=== PATIENT | female | born 1990 | race Hispanic/Latino ===

== ENCOUNTER 2017-11-10 11:25 | Emergency (ER) | payer OTHER ==
[2017-11-10 12:05] LABS: BASOPHILS % (AUTO) 0.2 % (0.0-5.0); EOSINOPHILS % (AUTO) 0.1 % (0.0-8.0); HEMATOCRIT 40.3 % (36-48); LYMPHOCYTES % (AUTO) 5.2 % (21.0-51.0); MEAN CORPUSCULAR HEMOGLOBIN 27.8 pg (27.0-33.0); MEAN CORPUSCULAR HGB CONC 34.3 g/dL (32.0-36.0); MEAN CORPUSCULAR VOLUME 80.9 fL (79-99); MONOCYTES % (AUTO) 3.3 % (3.0-13.0); NEUTROPHILS % (AUTO) 91.2 % (40.0-77.0); PLATELET COUNT (AUTO) 415 K/uL (130-400); RED BLOOD CELL COUNT(AUTO) 4.98 MIL/uL (4.00-5.50); RED CELL DISTRIBUTION WIDTH 14.1 % (11.0-15.5); WHITE BLOOD COUNT (AUTO) 18.1 K/uL (4.8-10.8)
[2017-11-10 12:11] LABS: CREATININE 0.7 mg/dL (0.5-1.5); POTASSIUM 3.6 mmol/L (3.5-5.1)
[2017-11-10 12:15] LABS: ALBUMIN 3.9 g/dL (3.5-5.0); BILIRUBIN,TOTAL 0.5 mg/dL (0.2-1.0); TOTAL PROTEIN, SERUM 8.8 g/dL (6.0-8.3)
[2017-11-10] MEDS ORDERED: SODIUM CHLORIDE 0.9% 1000ML 1,000 ML IV ONE (12:58)
[2017-11-10] MEDS ORDERED: ONDANSETRON HCL MDV 20ML 2 MG/ML VIAL ONE (12:58)
[2017-11-10 13:21] LABS: APPEARANCE,URINE TURBID (CLEAR); BILIRUBIN,URINE SMALL (NEGATIVE); COLOR,URINE YELLOW (YELLOW); GLUCOSE, URINE (UA) NEGATIVE (NEGATIVE); HCG,QUAL RESULT POSITIVE (NEGATIVE); KETONES,URINE >=80 mg/dL (NEGATIVE); LEUKOCYTE ESTERASE ,URINE NEGATIVE (NEGATIVE); NITRATE,URINE NEGATIVE (NEGATIVE); OCCULT BLOOD,URINE MODERATE (NEGATIVE); PH,URINE 5.5 (5.0-8.0); PROTEIN,URINE TRACE (NEGATIVE); UROBILINOGEN,URINE 0.2 mg/dL (0.2-1.0)
[2017-11-10 13:48] LABS: AMORPHOUS SEDIMENT,UR Many /LPF (None Seen); BACTERIA,URINE Few /HPF (None Seen); WBC,URINE None Seen /HPF (0-1)
== END 2017-11-10 14:28 | disposition home or self-care (01) ==
LOC: EDH 11:25
DX: O20.9 Hemorrhage in early pregnancy, unspecified (principal); O26.891 Other specified pregnancy related conditions, first trimester; K52.9 Noninfective gastroenteritis and colitis, unspecified; Z90.49 Acquired absence of other specified parts of digestive tract; Z79.899 Other long term (current) drug therapy; Z3A.09 9 weeks gestation of pregnancy
CPT/HCPCS: 36415; 80053; 81001; 81025; 82150; 83690; 85025; 86677; 96361; 96374; 99284; J7030

== ENCOUNTER 2017-12-11 05:59 | Day surgery (SDC) | payer OTHER ==
[2017-12-10 16:35] VITALS: BP 140/82
[2017-12-10 16:39] LABS: BASOPHILS % (AUTO) 2.7 % (0.0-5.0); EOSINOPHILS % (AUTO) 1.5 % (0.0-8.0); HEMATOCRIT 37.7 % (36-48); LYMPHOCYTES % (AUTO) 24.1 % (21.0-51.0); MEAN CORPUSCULAR HEMOGLOBIN 27.6 pg (27.0-33.0); MEAN CORPUSCULAR HGB CONC 33.9 g/dL (32.0-36.0); MEAN CORPUSCULAR VOLUME 81.3 fL (79-99); MONOCYTES % (AUTO) 5.7 % (3.0-13.0); PLATELET COUNT (AUTO) 420 K/uL (130-400); RED BLOOD CELL COUNT(AUTO) 4.63 MIL/uL (4.00-5.50); RED CELL DISTRIBUTION WIDTH 13.5 % (11.0-15.5); WHITE BLOOD COUNT (AUTO) 11.9 K/uL (4.8-10.8)
[~2017-12-11] VITALS: Ht 154.9 cm; Wt 87.7 kg
[2017-12-11] MEDS ORDERED: LACTATED RINGERS 1000ML 1,000 ML IV SCH (06:00)
[2017-12-11 06:20] VITALS: BP 117/82
[2017-12-11] MEDS ORDERED: CEFAZOLIN SODIUM 1 GM VIAL ONE (06:58)
[2017-12-11] MEDS ORDERED: GLYCOPYRROLATE 0.2 MG/ML 5 ML VIAL ONE (07:06)
[2017-12-11] MEDS ORDERED: LIDOCAINE PF 2% 5ML ABBOJECT ONE (07:06)
[2017-12-11] MEDS ORDERED: ONDANSETRON HCL 4 MG/2 ML VIAL ONE (07:06)
[2017-12-11] MEDS ORDERED: DEXAMETHASONE SOD PHOSPHATE 10MG/ML 1ML VIAL ONE (07:06)
[2017-12-11] MEDS ORDERED: PROPOFOL 10 MG/ML 20ML VIAL IV ONE (07:08)
[2017-12-11] MEDS ORDERED: MIDAZOLAM HCL 1 MG/ML 2ML VIAL ONE (07:08)
[2017-12-11] MEDS ORDERED: FENTANYL CITRATE PF 50 MCG/1 ML 2ML VIAL ONE (07:25)
[2017-12-11] MEDS ORDERED: CEFAZOLIN SODIUM 1 GM VIAL IVP ONE (08:00)
[2017-12-11] MEDS ORDERED: WATER FOR INJECTION,STERILE 20 ML VIAL IJ ONE (08:00)
[2017-12-11 08:57] VITALS: BP 120/80
[2017-12-11 09:15] VITALS: BP 125/86
[2017-12-11 09:30] VITALS: BP 124/80
[2017-12-11] MEDS ORDERED: METHYLERGONOVINE MALEATE 0.2 MG/1 ML ML ONE (10:06)
== END 2017-12-11 09:50 | disposition home or self-care (01) ==
LOC: DAH 05:59
PROVIDERS: ATTEND Obstetrics & Gynecology
DX: O02.0 Blighted ovum and nonhydatidiform mole (principal)
CPT/HCPCS: 36415; 59820; 85025; 86850; 86900; 86901; 88305; A4218; A4351; A4510; A4600; J0690; J1100; J2001; J2210; J2250; J2405; J2704; J3010; J3490; J7030; J7120

== ENCOUNTER 2019-11-02 18:01 | Inpatient (IN) | payer OTHER ==
[~2019-11-02] VITALS: Ht 154.9 cm; Wt 97.5 kg
[2019-11-02] MEDS ORDERED: OXYTOCIN-LR 20 UNITS/1000 ML 1,000 ML IV SCH (18:45)
[2019-11-02] MEDS ORDERED: MISOPROSTOL 25 MCG TABLET ONE (19:56)
[2019-11-02 20:23] LABS: HEMATOCRIT 36.5 % (36-48); MEAN CORPUSCULAR HEMOGLOBIN 25.8 pg (27.0-33.0); MEAN CORPUSCULAR HGB CONC 32.9 g/dL (32.0-36.0); MEAN CORPUSCULAR VOLUME 78.5 fL (79-99); RED BLOOD CELL COUNT(AUTO) 4.65 MIL/uL (4.00-5.50); RED CELL DISTRIBUTION WIDTH 16.2 % (11.0-15.5); WHITE BLOOD COUNT (AUTO) 8.9 K/uL (4.8-10.8)
[2019-11-03] MEDS ORDERED: MISOPROSTOL 25 MCG TABLET VG SCH
[2019-11-03 02:36] LABS: APPEARANCE,URINE CLEAR (CLEAR); BILIRUBIN,URINE NEGATIVE (NEGATIVE); COLOR,URINE YELLOW (YELLOW); GLUCOSE, URINE (UA) NEGATIVE (NEGATIVE); KETONES,URINE 40 mg/dL (NEGATIVE); LEUKOCYTE ESTERASE ,URINE NEGATIVE (NEGATIVE); NITRATE,URINE NEGATIVE (NEGATIVE); OCCULT BLOOD,URINE NEGATIVE (NEGATIVE); PROTEIN,URINE 30 mg/dL (NEGATIVE); UROBILINOGEN,URINE 0.2 mg/dL (0.2-1.0)
[2019-11-03 02:43] LABS: BACTERIA,URINE Moderate /HPF (None Seen); RBC,URINE 0-1 /HPF (0-1); WBC,URINE 0-1 /HPF (0-1)
[2019-11-03] MEDS: LACTATED RINGERS 1000ML 1,000 ML IV PRN (03:00)
[2019-11-03] MEDS ORDERED: OXYTOCIN 10 USP UNITS/ML 20 UNIT in LACTATED RINGERS 1000ML 1,000 ML IV SCH ×2 (03:00→07:00)
[2019-11-03] MEDS ORDERED: MEPERIDINE-PF 50 MG/ML SYG ONE (13:08)
[2019-11-03] MEDS ORDERED: PROMETHAZINE HCL 25 MG/ML 1ML AMPULE IM SCH (14:10)
[2019-11-03] MEDS ORDERED: MEPERIDINE-PF 50 MG/ML SYG IVP ONE (14:10)
[2019-11-03] MEDS: AMPICILLIN 2GM+NS 100ML 100 ML IV SCH ×2 (16:16→21:58)
[2019-11-04] MEDS: AMPICILLIN 2GM+NS 100ML 100 ML IV SCH ×3 (02:09→10:01)
[2019-11-04] MEDS: LACTATED RINGERS 1000ML 1,000 ML IV PRN (02:15)
[2019-11-04] MEDS ORDERED: OXYTOCIN-LR 20 UNITS/1000 ML 1,000 ML IV ONE (02:43)
[2019-11-04] MEDS ORDERED: LACTATED RINGERS 500 ML 500 ML IV PRN (08:00)
[2019-11-04] MEDS ORDERED: NALOXONE HCL 0.4 MG/1 ML ML IV PRN (08:00)
[2019-11-04] MEDS ORDERED: OXYTOCIN-LR 20 UNITS/1000 ML 1,000 ML IV SCH (08:00)
[2019-11-04] MEDS ORDERED: EPHEDRINE SULFATE 50 MG/ML AMPULE IVP PRN (08:00)
[2019-11-04 08:11] LABS: HEPATITIS Bs ANTIGEN SCREEN P Negative (Negative)
[2019-11-04] MEDS ORDERED: CALDOLOR 800MG+NS 250ML 250 ML IV ONE (11:00)
[2019-11-04] MEDS ORDERED: CEFAZOLIN SODIUM 1 GM VIAL ONE (11:00)
[2019-11-04] MEDS ORDERED: LACTATED RINGERS 1000ML 1,000 ML IV SCH (11:00)
[2019-11-04] MEDS ORDERED: CITRIC ACID/SODIUM CITRATE 30 ML UDCUP PO PRN (11:00)
[2019-11-04] MEDS ORDERED: CEFAZOLIN SODIUM 1 GM VIAL IVP PRN (11:00)
[2019-11-04] MEDS ORDERED: CALDOLOR 800MG+NS 250ML 250 ML IV PRN (11:00)
[2019-11-04] MEDS ORDERED: METOCLOPRAMIDE 10 MG/2 ML VIAL IVP PRN (11:00)
[2019-11-04] MEDS ORDERED: MEASLES/MUMPS/RUBELLA VACCINE, LIVE 0.5 ML/VIAL SQ SCH (11:15)
[2019-11-04] MEDS ORDERED: PROMETHAZINE HCL 25 MG/ML 1ML AMPULE IM PRN (11:15)
[2019-11-04] MEDS ORDERED: MEPERIDINE-PF 75 MG/ML SYG IM PRN (11:15)
[2019-11-04] MEDS ORDERED: ACETAMINOPHEN-CODEINE 300/30MG TAB PO PRN (11:15)
[2019-11-04] MEDS ORDERED: SODIUM CHLORIDE 0.9% 10 ML VIAL IVP PRN (11:15)
[2019-11-04] MEDS ORDERED: BISACODYL 10 MG SUPP.RECT RC PRN (11:15)
[2019-11-04] MEDS ORDERED: HYDROCODONE/ACETAMINOPHEN 5/325 MG TAB PO PRN (11:15)
[2019-11-04] MEDS ORDERED: ACETAMINOPHEN EXTRA STRENGTH 500 MG TABLET PO PRN (11:15)
[2019-11-04] MEDS ORDERED: OXYTOCIN-LR 20 UNITS/1000 ML 1,000 ML IV PRN (11:15)
[2019-11-04] MEDS ORDERED: IBUPROFEN 600 MG TABLET PO PRN (11:15)
[2019-11-04] MEDS ORDERED: DIPHENHYDRAMINE HCL 25 MG CAPSULE PO PRN (11:15)
[2019-11-04] MEDS ORDERED: DEXTROSE 5 %-0.45 % NACL 1,000 ML IV PRN (11:15)
[2019-11-04] MEDS ORDERED: LANOLIN 30GM OINTMENT TP PRN (11:15)
[2019-11-04] MEDS ORDERED: CEFAZOLIN SODIUM 1 GM VIAL IVP ONE (11:55)
[2019-11-04] MEDS ORDERED: METHYLERGONOVINE MALEATE 0.2 MG/1 ML ML ONE (12:11)
[2019-11-04] MEDS ORDERED: TRANEXAMIC ACID 1000MG/10ML ONE (12:14)
[2019-11-04 15:25] VITALS: BP 138/82
[2019-11-04] MEDS ORDERED: ONDA8TAB5 PO (15:43)
[2019-11-04] MEDS ORDERED: PREN-196 PO (15:43)
[2019-11-04 20:14] VITALS: BP 134/80
[2019-11-04] MEDS: DOCUSATE SODIUM 100 MG CAP PO SCH (20:15)
[2019-11-04] MEDS: CALDOLOR 800MG+NS 250ML 250 ML IV SCH (20:16)
[2019-11-05 00:08] VITALS: BP 125/70
[2019-11-05] MEDS: AMPICILLIN 2GM+NS 100ML 100 ML IV SCH ×4 (01:46→06:55)
[2019-11-05] MEDS: DIPH,PERTUSS(ACELL),TET VAC/PF 0.5 ML VIAL IM SCH ×2 (01:57→03:31)
[2019-11-05 03:01] VITALS: BP 136/90
[2019-11-05] MEDS: CALDOLOR 800MG+NS 250ML 250 ML IV SCH (04:00)
[2019-11-05 06:48] LABS: HEMATOCRIT 38.7 % (36-48); MEAN CORPUSCULAR HEMOGLOBIN 25.7 pg (27.0-33.0); MEAN CORPUSCULAR HGB CONC 32.3 g/dL (32.0-36.0); MEAN CORPUSCULAR VOLUME 79.6 fL (79-99); RED BLOOD CELL COUNT(AUTO) 4.86 MIL/uL (4.00-5.50); RED CELL DISTRIBUTION WIDTH 16.8 % (11.0-15.5); WHITE BLOOD COUNT (AUTO) 16.5 K/uL (4.8-10.8)
--- NOTE | 2019-11-05 07:20 | NUR ---
MEJIA NOGUEIRA DC'Giovanna, PT INST TO CALL FOR ASSIST BEFORE GETTING OUT OF BED, VERBALIZED UNDERSTANDING. Addendum: 11/05/19 at 0730 by QASIM CARDENAS RN RN Amended: Links added.
[2019-11-05 07:31] VITALS: BP 122/78
--- NOTE | 2019-11-05 08:00 | NUR ---
ASSISTED UP TO CHAIR AND TOLERATED ACTIVITY WELL. C/O HAVING PAIN OF 7 AND WILL BE MEDICATED WITH NORCO. PATIENT HAS TEDS ON AND SCDS AND WERE REMOVED AND PERICARE DONE AND WAS ASSISTED TO CHAIR. ENCOURAGED PATIENT TO EAT BREAKFAST AND THEN AMBULATE IN HALLWAY AFTER MEALS.
[2019-11-05] MEDS ORDERED: LIDOCAINE 5% TOPICAL PATCH TP SCH (09:00)
[2019-11-05] MEDS: SIMETHICONE 80 MG TAB.CHEW PO PRN ×2 (09:03→17:31)
[2019-11-05] MEDS: DOCUSATE SODIUM 100 MG CAP PO SCH (09:03)
[2019-11-05 11:19] VITALS: BP 123/92
--- NOTE | 2019-11-05 12:00 | NUR ---
PATIENT IS UP AND AMBULATING IN HALLWAY. TOLERATING ACTIVITY WELL. PATIENT STATES HAVING VOIDED AND IV WILL BE REMOVED FOR DISCHARGED.
--- NOTE | 2019-11-05 12:30 | NUR ---
D/C PLAN CM spoke to pt regarding SS prompt with hx of marijuana use. Patient states she has not used since about 2-3 years. CM reviewed chart and no positive drug screens found during . Pt states she does not plan on using any drugs. States she has strong family support. Spouse to assist with baby. Denies any issues obtaining necessary supplies and clothing for baby. States she has carseat. 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 Pt has transportation for her and baby upon discharge. Nursing updated. No needs verbalized or identified. Addendum: 11/05/19 at 1759 by MILKA WAHL Amended: Links added.
--- NOTE | 2019-11-05 13:00 | NUR ---
DR. HUMPHREYS ROUNDED AND DISCHARGED PATIENT IF BABY IS DISCHARGED. PATIENT TO FOLLOW UP WITH DR. CLAUDY TORRES SCHEDULED ON 11/24/2019 AT 9:15AM. PATIENT IS STABLE AND INCISION IS OPEN TO AIR AND NO REDNESS OR DRAINAGE NOTED.
[2019-11-05 16:25] VITALS: BP 106/68
--- NOTE | 2019-11-05 17:30 | NUR ---
DISCHARGE INSTRUCTIONS GIVEN AND SCRIPT FOR PAIN MANAGEMENT AT HOME GIVEN. PATIENT INSTRUCTED ON DOSAGE AND FREQUENCY OF MEDICATIONS AND VERBALIZED UNDERSTANDING.
--- NOTE | 2019-11-05 18:15 | NUR ---
PATIENT WAS TAKEN VIA W/C TO FAMILY VEHICLE CARRYING BABY IN ARMS AND WAS DISCHARGED TO HER SIGNIFICANT OTHER. PATIENT IS STABLE AND DENIES PAIN. VERBALIZED PASSING GAS WELL AND REFUSED DULCOLAX SUPPOSITORY.
== END 2019-11-05 18:15 | disposition home or self-care (01) | DRG 788 ==
LOC: LDH 18:01 → WSH 11-04 15:25 → EDSTATUS 11-04 18:00
PROVIDERS: ADMIT Obstetrics & Gynecology; ATTEND Obstetrics & Gynecology
PROC: 3E0234Z Introduction of Serum, Toxoid and Vaccine into Muscle, Percutaneous Approach (ICD-10-PCS; 2019-11-04)
PROC: 10D00Z1 Extraction of Products of Conception, Low, Open Approach (ICD-10-PCS; principal; 2019-11-04 12:00)
DX: O62.2 Other uterine inertia (principal); O69.81X0 Labor and delivery complicated by cord around neck, without compression, not applicable or unspecified; Z37.0 Single live birth; O24.429 Gestational diabetes mellitus in childbirth, unspecified control; Z3A.39 39 weeks gestation of pregnancy; Z23 Encounter for immunization; O62.0 Primary inadequate contractions; O99.214 Obesity complicating childbirth; E66.9 Obesity, unspecified
CPT/HCPCS: 36415; 59510; 81001; 82947; 85027; 86592; 86850; 86900; 86901; 87088; 87340; 90715; A4344; G0378; J0290; J0690; J1741; J2175; J2210; J2590; J2765; J3490; J7120

== ENCOUNTER 2022-05-20 14:10 | Observation (INO) | payer OTHER ==
[~2022-05-20] VITALS: Ht 152.4 cm; Wt 102.1 kg
[~2022-05-20 14:10] MED LIST: ONDA8TAB5 PO; PREN-196 PO
[2022-05-20 14:50] LABS: BASOPHILS % (AUTO) 0.3 % (0.0-5.0); EOSINOPHILS % (AUTO) 0.8 % (0.0-8.0); HEMATOCRIT 34.3 % (36-48); LYMPHOCYTES % (AUTO) 16.2 % (21.0-51.0); MEAN CORPUSCULAR HGB CONC 32.7 g/dL (32.0-36.0); MEAN CORPUSCULAR VOLUME 76.6 fL (79-99); MONOCYTES % (AUTO) 4.9 % (3.0-13.0); NEUTROPHILS % (AUTO) 77.3 % (40.0-77.0); PLATELET COUNT (AUTO) 366 K/uL (130-400); RED BLOOD CELL COUNT(AUTO) 4.48 MIL/uL (4.00-5.50); RED CELL DISTRIBUTION WIDTH 14.9 % (11.0-15.5); WHITE BLOOD COUNT (AUTO) 10.3 K/uL (4.8-10.8)
[2022-05-20 14:58] LABS: CREATININE 0.7 mg/dL (0.5-1.5); POTASSIUM 3.7 mmol/L (3.5-5.1)
[2022-05-20 14:59] LABS: INR 0.93 (0.85-1.15)
[2022-05-20 15:01] LABS: PARTIAL THROMBOPLASTIN TIME 26.5 SEC (26.3-35.5)
[2022-05-20 15:03] LABS: ALBUMIN 2.4 g/dL (3.5-5.0); TOTAL PROTEIN, SERUM 7.6 g/dL (6.0-8.3); URIC ACID 4.2 mg/dL (2.6-7.2)
[2022-05-20 15:18] LABS: APPEARANCE,URINE CLEAR (CLEAR); BILIRUBIN,URINE NEGATIVE (NEGATIVE); COLOR,URINE YELLOW (YELLOW); GLUCOSE, URINE (UA) 150 mg/dL (NEGATIVE); KETONES,URINE 5 mg/dL (NEGATIVE); LEUKOCYTE ESTERASE ,URINE NEGATIVE Leu/uL (NEGATIVE); NITRATE,URINE NEGATIVE (NEGATIVE); PROTEIN,URINE 30 mg/dL (NEGATIVE)
[2022-05-20 15:22] LABS: BACTERIA,URINE RARE /HPF (None Seen); MUCUS,URINE RARE LPF (None Seen); SQUAMOUS EPITHELIAL CELL,UR RARE /HPF (0-2); WBC,URINE 0-1 /HPF (0-1)
[2022-05-20] MEDS ORDERED: LIDOCAINE HCL-MPF 1% 2ML VIAL IM SCH (16:30)
[2022-05-20] MEDS ORDERED: CEFTRIAXONE 1G VIAL IM ONE (16:30)
== END 2022-05-20 17:05 | disposition home or self-care (01) ==
LOC: LDH 14:10
PROVIDERS: ADMIT Obstetrics & Gynecology; ATTEND Obstetrics & Gynecology
DX: O36.8930 Maternal care for other specified fetal problems, third trimester, not applicable or unspecified (principal); Z3A.36 36 weeks gestation of pregnancy; Z79.899 Other long term (current) drug therapy
CPT/HCPCS: 96372; 59025; 84550; 80053; 85025; 85384; 85610; 85730; 81001; 36415; 76805; G0378 ×3; G0379; J0696; J3490; A4351

== ENCOUNTER 2022-05-27 15:48 | Inpatient (IN) | payer OTHER ==
[~2022-05-27] VITALS: Ht 152.4 cm; Wt 101.6 kg
[2022-05-27 16:58] LABS: HEMATOCRIT 33.9 % (36-48); MEAN CORPUSCULAR HGB CONC 32.4 g/dL (32.0-36.0); PLATELET COUNT (AUTO) 356 K/uL (130-400); WHITE BLOOD COUNT (AUTO) 11.6 K/uL (4.8-10.8)
[2022-05-27] MEDS ORDERED: LACTATED RINGERS 1000ML 1,000 ML IV PRN (17:00)
[2022-05-27] MEDS ORDERED: CEFAZOLIN SODIUM 1 GM VIAL IVP PRN (17:00)
[2022-05-27] MEDS ORDERED: CALDOLOR 800MG+NS 250ML 250 ML IV PRN (17:00)
[2022-05-27] MEDS ORDERED: OXYTOCIN-LR 20 UNITS/1000 ML 1,000 ML IV SCH (17:00)
[2022-05-27 17:05] LABS: INR 0.93 (0.85-1.15); PROTHROMBIN TIME 9.9 SEC (9.6-11.6)
[2022-05-27 17:06] LABS: PARTIAL THROMBOPLASTIN TIME 25.8 SEC (26.3-35.5)
[2022-05-27 17:31] LABS: ALBUMIN 2.5 g/dL (3.5-5.0); CREATININE 0.6 mg/dL (0.5-1.5); POTASSIUM 3.6 mmol/L (3.5-5.1); TOTAL PROTEIN, SERUM 7.7 g/dL (6.0-8.3); URIC ACID 4.3 mg/dL (2.6-7.2)
[2022-05-27 17:43] LABS: APPEARANCE,URINE CLOUDY (CLEAR); BILIRUBIN,URINE NEGATIVE (NEGATIVE); COLOR,URINE YELLOW (YELLOW); GLUCOSE, URINE (UA) 30 mg/dL (NEGATIVE); KETONES,URINE NEGATIVE (NEGATIVE); LEUKOCYTE ESTERASE ,URINE NEGATIVE Leu/uL (NEGATIVE); NITRATE,URINE NEGATIVE (NEGATIVE); OCCULT BLOOD,URINE NEGATIVE (NEGATIVE); PROTEIN,URINE 50 mg/dL (NEGATIVE); UROBILINOGEN,URINE 0.2 mg/dL (0.2-1.0)
[2022-05-27 17:49] LABS: BACTERIA,URINE FEW /HPF (None Seen); CALCIUM OXALATE CRYSTALS,UR MOD /LPF (None Seen); MUCUS,URINE RARE LPF (None Seen); SQUAMOUS EPITHELIAL CELL,UR MOD /HPF (0-2)
[2022-05-28] MEDS ORDERED: ONDANSETRON 4MG INJ ONE ×2 (07:12→10:02)
[2022-05-28] MEDS ORDERED: MORPHINE PF 100MG/10ML AMP IV ONE (07:13)
[2022-05-28] MEDS ORDERED: EPINEPHRINE PF 1MG (1:1,000) 1 MG/ML AMP ONE (07:13)
[2022-05-28] MEDS ORDERED: OXYTOCIN 10 USP UNITS/ML ONE (08:09)
[2022-05-28] MEDS ORDERED: GLYCOPYRROLATE 1 MG/5 ML SYRINGE ONE (08:10)
[2022-05-28] MEDS ORDERED: MIDAZOLAM HCL 1 MG/ML 2ML VIAL ONE (08:12)
[2022-05-28] MEDS ORDERED: EPHEDRINE SULFATE 50 MG/ML AMPULE ONE (08:30)
[2022-05-28] MEDS ORDERED: MEPERIDINE-PF 25 MG/ML SYG ONE (08:43)
[2022-05-28] MEDS ORDERED: 0.9%NACL 10ML VIAL IVP PRN (09:00)
[2022-05-28] MEDS ORDERED: PROMETHAZINE HCL 25 MG/ML 1ML AMPULE IM PRN (09:00)
[2022-05-28] MEDS ORDERED: OXYTOCIN-LR 20 UNITS/1000 ML 1,000 ML IV PRN (09:00)
[2022-05-28] MEDS ORDERED: MEPERIDINE-PF 75 MG/ML SYG IM PRN (09:00)
[2022-05-28] MEDS ORDERED: DiphenhydrAMINE HCL 50 MG/ML VIAL ONE (09:59)
[2022-05-28] MEDS ORDERED: NALOXONE HCL 0.4 MG/1 ML ML IVP PRN ×3 (11:00→11:30)
[2022-05-28 11:12] VITALS: BP 113/53
[2022-05-28] MEDS ORDERED: EPHEDRINE SULFATE 50 MG/ML AMPULE IVP PRN (11:30)
[2022-05-28] MEDS ORDERED: DiphenhydrAMINE HCL 50 MG/ML VIAL IVP PRN (11:30)
[2022-05-28] MEDS ORDERED: ONDANSETRON 4MG INJ IVP PRN (11:30)
[2022-05-28 15:55] VITALS: BP 104/67
[2022-05-28] MEDS: CALDOLOR 800MG+NS 250ML 250 ML IV SCH (16:56)
[2022-05-28] MEDS: DEXTROSE 5 %-0.45 % NACL 1,000 ML IV PRN (17:00)
[2022-05-28 19:22] VITALS: BP 105/63
[2022-05-28 23:11] VITALS: BP 106/57
[2022-05-28] MEDS ORDERED: ACETAMINOPHEN WITH CODEINE 1 TAB TAB PO PRN (23:30)
[2022-05-29] MEDS: CALDOLOR 800MG+NS 250ML 250 ML IV SCH (01:01)
[2022-05-29] MEDS: DEXTROSE 5 %-0.45 % NACL 1,000 ML IV PRN (01:05)
[2022-05-29 02:46] VITALS: BP 108/51
[2022-05-29 06:49] LABS: HEMATOCRIT 31.8 % (36-48); MEAN CORPUSCULAR HEMOGLOBIN 25.1 pg (27.0-33.0); MEAN CORPUSCULAR HGB CONC 31.4 g/dL (32.0-36.0); MEAN CORPUSCULAR VOLUME 79.7 fL (79-99); RED BLOOD CELL COUNT(AUTO) 3.99 MIL/uL (4.00-5.50); RED CELL DISTRIBUTION WIDTH 14.7 % (11.0-15.5)
[2022-05-29 07:31] VITALS: BP 122/66
[2022-05-29] MEDS: DOCUSATE SODIUM 100 MG CAP PO SCH ×2 (10:04→20:36)
[2022-05-29] MEDS: IBUPROFEN 800 MG TAB PO SCH ×2 (10:05→17:00)
[2022-05-29] MEDS: SIMETHICONE 80 MG TAB.CHEW PO PRN ×2 (10:05→20:36)
[2022-05-29 11:34] VITALS: BP 118/74
[2022-05-29 16:00] VITALS: BP 118/73
[2022-05-29 19:28] VITALS: BP 119/61
[2022-05-29 22:51] VITALS: BP 122/74
[2022-05-30] MEDS: IBUPROFEN 800 MG TAB PO SCH ×2 (00:45→07:48)
[2022-05-30 03:13] VITALS: BP 109/72
[2022-05-30 07:30] VITALS: BP 130/78
[2022-05-30] MEDS: DOCUSATE SODIUM 100 MG CAP PO SCH (07:47)
[2022-05-30] MEDS: SIMETHICONE 80 MG TAB.CHEW PO PRN (07:48)
== END 2022-05-30 12:35 | disposition home or self-care (01) | DRG 788 ==
LOC: LDH 15:48 → WSH 05-28 11:10
PROVIDERS: ADMIT Obstetrics & Gynecology; ATTEND Obstetrics & Gynecology
PROC: 10D00Z1 Extraction of Products of Conception, Low, Open Approach (ICD-10-PCS; principal; 2022-05-28 07:30)
DX: O34.211 Maternal care for low transverse scar from previous cesarean delivery (principal); O16.4 Unspecified maternal hypertension, complicating childbirth; O99.214 Obesity complicating childbirth; Z37.0 Single live birth; Z3A.37 37 weeks gestation of pregnancy
CPT/HCPCS: 36415; 80053; 81001; 84550; 85027; 85384; 85610; 85730; 86592; 86850; 86900; 86901; 87340; G0378; J0171; J0690; J1200; J1741; J2175; J2250; J2274; J2405; J2590; J3490